=== PATIENT | female | born 1990 | race Caucasian/White ===

== ENCOUNTER 2019-11-08 20:00 | Inpatient (IN) | payer OTHER ==
[~2019-11-08] VITALS: Ht 160 cm; Wt 106.0 kg
[~2019-11-08 20:00] MED LIST: CYCL10 PO; HYDACE5 PO; IBUP600 PO
[2019-11-08] MEDS ORDERED: SERT100 PO (21:02)
[2019-11-08] MEDS ORDERED: LABE100 PO (21:03)
[2019-11-08] MEDS ORDERED: Zantac150 MG PO (21:03)
[2019-11-08] MEDS ORDERED: Vitafol-Ob+Dha1 EACH PO (21:04)
[2019-11-08] MEDS ORDERED: [UNRECOGNIZED DRUG - OTHER] PO (21:05)
[2019-11-08] MEDS ORDERED: ABAT250V (21:05)
[2019-11-08 21:35] LABS: BASOPHILS ABSOLUTE AUTO 0.05 K/mm3 (0.00-0.23); BASOPHILS PERCENT AUTO 0 % (0-2); EOSINOPHILS ABSOLUTE AUTO 0.15 K/mm3 (0.00-0.68); EOSINOPHILS PERCENT AUTO 1 % (0-6); Hematocrit 37.6 % (33.0-51.0); Hemoglobin 12.5 g/dL (11.5-16.0); IMMATURE GRAN ABSOLUTE AUTO 0.12 K/mm3 (0.00-0.10); IMMATURE GRAN PERCENT AUTO 1 % (0-1); LYMPHOCYTES ABSOLUTE AUTO 2.62 K/mm3 (0.84-5.20); LYMPHOCYTES PERCENT AUTO 21 % (21-46); MONOCYTES ABSOLUTE AUTO 1.18 K/mm3 (0.16-1.47); MONOCYTES PERCENT AUTO 9 % (4-13); Mean Corpuscular HGB Conc 33.2 g/dL (31.5-36.5); Mean Corpuscular Volume 90 fL (80-100); Mean Platelet Volume 11.9 fL (9.1-12.4); NEUTROPHILS ABSOLUTE AUTO 8.63 K/mm3 (1.96-9.15); NEUTROPHILS PERCENT AUTO 68 % (41-73); Platelet Count 256 K/mm3 (150-400); RDW Coefficient Variation 13.6 % (11.7-14.2); RDW Standard Deviation 45.8 fL (35.1-46.3); Red Blood Cell Count 4.16 M/mm3 (3.80-5.20); White Blood Cell Count 12.75 K/mm3 (4.00-11.30)
[2019-11-11] MEDS ORDERED: IBUP800 PO (08:01)
[2019-11-11 10:41] LABS: BASOPHILS ABSOLUTE AUTO 0.04 K/mm3 (0.00-0.23); BASOPHILS PERCENT AUTO 0 % (0-2); EOSINOPHILS ABSOLUTE AUTO 0.11 K/mm3 (0.00-0.68); EOSINOPHILS PERCENT AUTO 1 % (0-6); Hematocrit 35.2 % (33.0-51.0); Hemoglobin 11.5 g/dL (11.5-16.0); IMMATURE GRAN ABSOLUTE AUTO 0.14 K/mm3 (0.00-0.10); IMMATURE GRAN PERCENT AUTO 1 % (0-1); LYMPHOCYTES ABSOLUTE AUTO 2.12 K/mm3 (0.84-5.20); LYMPHOCYTES PERCENT AUTO 13 % (21-46); MONOCYTES ABSOLUTE AUTO 1.48 K/mm3 (0.16-1.47); MONOCYTES PERCENT AUTO 9 % (4-13); Mean Corpuscular HGB 29.9 pg (26.0-34.0); Mean Corpuscular HGB Conc 32.7 g/dL (31.5-36.5); Mean Corpuscular Volume 91 fL (80-100); Mean Platelet Volume 11.1 fL (9.1-12.4); NEUTROPHILS ABSOLUTE AUTO 13.09 K/mm3 (1.96-9.15); NEUTROPHILS PERCENT AUTO 77 % (41-73); Platelet Count 219 K/mm3 (150-400); RDW Coefficient Variation 13.9 % (11.7-14.2); RDW Standard Deviation 46.6 fL (35.1-46.3); Red Blood Cell Count 3.85 M/mm3 (3.80-5.20); White Blood Cell Count 16.98 K/mm3 (4.00-11.30)
--- NOTE | 2019-11-11 11:45 | NUR ---
AMANDA FROM [facility] AT 1130 CARE ASSUMED BY THIS NURSING SPECIALIST AT THAT TIME.
--- NOTE | 2019-11-11 11:47 | NUR ---
REPORT TO MAYRA/CHELY WIGGINS. STABLE. SITTING UP .
--- NOTE | 2019-11-11 17:14 | NUR ---
RN ROUNDED TO HELP WITH . INSTRUCT PARENTS WITH BOOKLETS AND BROCHURE ON CHANGES IN NB AND DURING THE FIRST WEEK OF LIFE, BOTH VERBALIZED UNDERSTANDING AND DENY ANY FURTHER QUESTIONS OR CONCERNS. PT REPORTS NB BREASTFED WELL FOR 30 MINUTES 1 HOUR PREVIOUS TO ROUNDING.
--- NOTE | 2019-11-11 21:50 | NUR ---
DISCHARGE ISNTRUCTIONS REVIEWED WITH PREVIOUS SHIFT, BUT PT VERBALIZED UNDERSTANDING AND DENIES ANY FURTHER QUESTIONS AT THIS TIME. DISCHARGE PAPERWORK GIVEN TO PATIENT AND BANDS WERE MATCHED BY KAREN, [employer] SUPERVISOR.
== END 2019-11-11 22:10 | disposition home or self-care (01) | DRG 807 ==
LOC: BC 20:00
PROVIDERS: ADMIT Nurse Practitioner Obstetrics & Gynecology
PROC: 3E0P7VZ Introduction of Hormone into Female Reproductive, Via Natural or Artificial Opening (ICD-10-PCS; 2019-11-08)
PROC: 3E033VJ Introduction of Other Hormone into Peripheral Vein, Percutaneous Approach (ICD-10-PCS; 2019-11-09)
PROC: 10907ZC Drainage of Amniotic Fluid, Therapeutic from Products of Conception, Via Natural or Artificial Opening (ICD-10-PCS; 2019-11-09)
PROC: 3E0R3BZ Introduction of Anesthetic Agent into Spinal Canal, Percutaneous Approach (ICD-10-PCS; 2019-11-09)
PROC: 10E0XZZ Delivery of Products of Conception, External Approach (ICD-10-PCS; principal; 2019-11-10)
PROC: 0HQ9XZZ Repair Perineum Skin, External Approach (ICD-10-PCS; 2019-11-10)
DX: O10.92 Unspecified pre-existing hypertension complicating childbirth (principal); Z37.0 Single live birth; Z3A.39 39 weeks gestation of pregnancy; O70.0 First degree perineal laceration during delivery; O99.214 Obesity complicating childbirth
CPT/HCPCS: 36415; 51702; 85025; 86850; 86900; 86901; J1885; J2001; J2210; J2405; J2590; J3010; J7120

== ENCOUNTER → 2021-10-09 | Outpatient (CLI) | payer OTHER ==
[~2021-10-09] MED LIST changes: +ABAT250V; +IBUP800 PO; +LABE100 PO; +SERT100 PO; +Vitafol-Ob+Dha1 EACH PO; +Zantac150 MG PO; +[UNRECOGNIZED DRUG - OTHER] PO
== END | disposition home or self-care (01) ==
LOC: LAB SHORT 17:00 → LAB 17:00
PROVIDERS: Advanced Practice Midwife
DX: O60.02 Preterm labor without delivery, second trimester (principal)
CPT/HCPCS: 82731

== ENCOUNTER 2021-11-07 05:20 | Inpatient (IN) | payer OTHER ==
[~2021-11-07] VITALS: Ht 160 cm; Wt 104.5 kg
[2021-11-07] MEDS ORDERED: LABE100 PO (05:59)
[2021-11-07 06:01] LABS: BASOPHILS ABSOLUTE AUTO 0.06 K/mm3 (0.00-0.23); BASOPHILS PERCENT AUTO 1 % (0-2); EOSINOPHILS ABSOLUTE AUTO 0.11 K/mm3 (0.00-0.68); EOSINOPHILS PERCENT AUTO 1 % (0-6); Hematocrit 36.3 % (33.0-51.0); Hemoglobin 11.8 g/dL (11.5-16.0); IMMATURE GRAN ABSOLUTE AUTO 0.08 K/mm3 (0.00-0.10); IMMATURE GRAN PERCENT AUTO 1 % (0-1); LYMPHOCYTES ABSOLUTE AUTO 3.19 K/mm3 (0.84-5.20); LYMPHOCYTES PERCENT AUTO 25 % (21-46); MONOCYTES ABSOLUTE AUTO 1.08 K/mm3 (0.16-1.47); MONOCYTES PERCENT AUTO 9 % (4-13); Mean Corpuscular HGB 28.1 pg (26.0-34.0); Mean Corpuscular HGB Conc 32.5 g/dL (31.5-36.5); Mean Corpuscular Volume 86 fL (80-100); Mean Platelet Volume 12.3 fL (9.1-12.4); NEUTROPHILS ABSOLUTE AUTO 8.19 K/mm3 (1.96-9.15); NEUTROPHILS PERCENT AUTO 64 % (41-73); Platelet Count 215 K/mm3 (150-400); RDW Coefficient Variation 13.5 % (11.7-14.2); RDW Standard Deviation 41.8 fL (35.1-46.3); White Blood Cell Count 12.71 K/mm3 (4.00-11.30)
[2021-11-07] MEDS ORDERED: FAMO20 PO (07:03)
[2021-11-09 05:26] LABS: Hemoglobin 10.4 g/dL (11.5-16.0); Mean Corpuscular HGB 28.6 pg (26.0-34.0); Mean Corpuscular HGB Conc 32.5 g/dL (31.5-36.5); Mean Corpuscular Volume 88 fL (80-100); Mean Platelet Volume 12.3 fL (9.1-12.4); Platelet Count 184 K/mm3 (150-400); RDW Coefficient Variation 13.9 % (11.7-14.2); RDW Standard Deviation 44.3 fL (35.1-46.3); Red Blood Cell Count 3.64 M/mm3 (3.80-5.20); White Blood Cell Count 12.37 K/mm3 (4.00-11.30)
[2021-11-09] MEDS ORDERED: IBUP800 PO (07:14)
== END 2021-11-09 11:15 | disposition home or self-care (01) | DRG 807 ==
LOC: OBS 05:20 → BC 05:21
PROVIDERS: ADMIT Nurse Practitioner Obstetrics & Gynecology
PROC: 10E0XZZ Delivery of Products of Conception, External Approach (ICD-10-PCS; principal; 2021-11-08)
PROC: 0KQM0ZZ Repair Perineum Muscle, Open Approach (ICD-10-PCS; 2021-11-08)
PROC: 3E0P7VZ Introduction of Hormone into Female Reproductive, Via Natural or Artificial Opening (ICD-10-PCS; 2021-11-08)
PROC: 00HU33Z Insertion of Infusion Device into Spinal Canal, Percutaneous Approach (ICD-10-PCS; 2021-11-08)
PROC: 3E0R3BZ Introduction of Anesthetic Agent into Spinal Canal, Percutaneous Approach (ICD-10-PCS; 2021-11-08)
DX: O10.92 Unspecified pre-existing hypertension complicating childbirth (principal); Z37.0 Single live birth; O99.824 Streptococcus B carrier state complicating childbirth; Z67.10 Type A blood, Rh positive; O69.81X0 Labor and delivery complicated by cord around neck, without compression, not applicable or unspecified; Z3A.39 39 weeks gestation of pregnancy; O70.1 Second degree perineal laceration during delivery; Z28.21 Immunization not carried out because of patient refusal
CPT/HCPCS: 36415; 85025; 85027; 86850; 86900; 86901; A9270; J0290; J1885; J2001; J2405; J3010; J7120